=== PATIENT | female | born 1970 | race Caucasian/White ===

== ENCOUNTER → 2021-02-03 | Outpatient (CLI) | payer OTHER ==
[2021-02-03 13:30] LABS: CHLORIDE 106 mmol/L (98-107)
[2021-02-03 13:38] LABS: BASOPHILS % (AUTO) 1 % (0-1); EOSINOPHILS % (AUTO) 2 % (1-7); LYMPHOCYTES % (AUTO) 27 % (22-44); MEAN CORPUSCULAR HEMOGLOBIN 31.4 pg (27.0-34.8); MEAN CORPUSCULAR HGB CONC 34.1 g/dL (32.4-35.8); MEAN PLATELET VOLUME 8.5 fL (7.4-10.4); MONOCYTES % (AUTO) 6 % (2-9); NEUTROPHILS % (AUTO) 65 % (42-75); PLATELET COUNT 276 x10^3/uL (130-400); RED BLOOD COUNT 4.62 x10^6/uL (3.82-5.3); RED CELL DISTRIBUTION WIDTH 13.6 % (9.6-15.2)
[2021-02-03 13:39] LABS: MICROSCOPIC AUTO
[2021-02-03 13:39] LABS: MD NO
[2021-02-03 13:49] LABS: ALANINE AMINOTRANSFERASE 28 U/L (12-78); ALBUMIN 3.6 g/dL (3.4-5.0); ALKALINE PHOSPHATASE 70 U/L (45-117); ANION GAP 8 mmol/L (5-15); BILIRUBIN,TOTAL 0.4 mg/dL (0.2-1.0); CALCIUM 8.6 mg/dL (8.5-10.1); CREATININE 0.66 mg/dL (0.55-1.02); TOTAL PROTEIN 6.9 g/dL (6.4-8.2)
== END | disposition home or self-care (01) ==
LOC: STAR 12:25
PROVIDERS: ATTEND Obstetrics & Gynecology Gynecology
DX: Z01.818 Encounter for other preprocedural examination (principal); R10.2 Pelvic and perineal pain; N92.6 Irregular menstruation, unspecified; N84.0 Polyp of corpus uteri; D21.9 Benign neoplasm of connective and other soft tissue, unspecified; Z20.822 Contact with and (suspected) exposure to COVID-19
CPT/HCPCS: 36415; 80053; 81001; 84703; 85025; 87086; U0003

== ENCOUNTER 2021-02-09 07:58 | Day surgery (SDC) | payer OTHER ==
[~2021-02-09] VITALS: Ht 167.6 cm; Wt 84.3 kg
[2021-02-09] MEDS ORDERED: CHLORHEXIDINE 15 ML UDC ONE ×2 (08:07→08:16)
[2021-02-09] MEDS ORDERED: CHLORHEXIDINE 15 ML UDC PO ONE (08:30)
[2021-02-09] MEDS: LACTATED RINGERS 1,000 ML IV SCH ×2 (08:33→08:45)
[2021-02-09] MEDS ORDERED: MIDAZOLAM 1 MG/ML, 2ML ONE (08:50)
[2021-02-09] MEDS ORDERED: FENTANYL PF 100 MCG/2ML ONE (08:50)
[2021-02-09] MEDS ORDERED: PROMETHAZINE 25 MG/ML, 1ML IVPush PRN (09:30)
[2021-02-09] MEDS ORDERED: HALOPERIDOL 5 MG/ML IV PRN (09:30)
[2021-02-09] MEDS ORDERED: LABETALOL 5MG/ML, 20ML IV PRN (09:30)
[2021-02-09] MEDS ORDERED: DIPHENHYDRAMINE 50 MG/ML, 1ML IVPush PRN (09:30)
[2021-02-09] MEDS ORDERED: MEPERIDINE/PF 25MG/0.5ML IVPush PRN (09:30)
[2021-02-09] MEDS ORDERED: HYDROmorphone 1 MG/ML, 1ML INJ IVPush PRN (09:30)
[2021-02-09] MEDS ORDERED: ACETAMINOPHEN 325 MG TABLET PO PRN (09:30)
[2021-02-09] MEDS ORDERED: OXYcodone 5 MG/5 ML ORAL.SOL UDC PO PRN (09:30)
[2021-02-09] MEDS ORDERED: FENTANYL PF 100 MCG/2ML IV PRN (09:30)
[2021-02-09] MEDS ORDERED: hydrALAzine 20 MG/ML, 1ML IV PRN (09:30)
[2021-02-09] MEDS ORDERED: BUPIVACAINE/PF 0.25% ONE (09:36)
[2021-02-09] MEDS ORDERED: EPINEPHRINE 1 MG/ML, 1ML ONE (09:36)
[2021-02-09] MEDS ORDERED: DEXAMETHASONE 4 MG/ML, 1ML ONE (09:42)
[2021-02-09] MEDS ORDERED: KETOROLAC 30 MG/1 ML ONE (09:55)
[2021-02-09] MEDS ORDERED: PROPOFOL 10 MG/ML, 20ML ONE (10:11)
[2021-02-09] MEDS ORDERED: ONDANSETRON 2MG/ML, 2ML ONE (10:11)
[2021-02-09] MEDS ORDERED: CEFAZOLIN 1,000 MG ONE (10:11)
[2021-02-09] MEDS ORDERED: ACETAMINOPHEN 325 MG TABLET ONE (11:30)
== END 2021-02-09 12:00 | disposition home or self-care (01) ==
LOC: OUT 07:58
PROVIDERS: ATTEND Obstetrics & Gynecology Gynecology
DX: N93.9 Abnormal uterine and vaginal bleeding, unspecified (principal); D25.9 Leiomyoma of uterus, unspecified; N84.0 Polyp of corpus uteri; Z88.5 Allergy status to narcotic agent; Z98.890 Other specified postprocedural states; Z82.49 Family history of ischemic heart disease and other diseases of the circulatory system; Z83.3 Family history of diabetes mellitus
CPT/HCPCS: 58558; 81025; 88305; J1100; J1885; J2250; J2405; J2704; J3010; J7120; J0171; J0690